=== PATIENT | female | born 1980 | race Caucasian/White ===

== ENCOUNTER 2024-04-29 10:06 | Emergency (ER) | payer OTHER, SELFPAY ==
[2024-04-29 10:16] VITALS: BP 150/95
[2024-04-29 10:24] VITALS: BP 135/90
[2024-04-29 10:27] VITALS: BMI 21.5
--- NOTE | 2024-04-29 10:41 | ED.GENMED ---
History of Present Illness
General
Chief Complaint: Dizziness
Time Seen by Provider: 04/29/24 10:30
History of Present Illness
History of Present Illness:
43 yo female w/ no past medical history presents to the Emergency Department for evaluation of dizziness and palpitations beginning this AM. Pt notes she awoke yesterday w/ blurry vision, that resolved after 30 mins or so, had occasional L arm
tingling yesterday. No fevers, chills or sweats. Currently palpitations and CP has resolved. No hx of similar symptoms. Denies new medications, OTC supplements or illicit substance use. LMP ended earlier this week, notes that it was 'longer' than
normal. No recent illnesses.
Past History
Past History
ED Past Medical History: None
ED Past Surgical History: Gynecological (D&E) and Orthopedic (Right ACL)
Social History
Tobacco: Non-smoker
Personal:
Living: with family
Employment: Employed
Review of Systems
Review of Systems
Allergies reviewed?: Yes
All Other Systems: ROS reviewed and negative except as documented in HPI and ROS
Phy Exam
Physical Exam
Physical Exam:
GEN: Well appearing, NAD, WDWN
Eyes: PERRLA, EOMs intact, no scleral icterus
HENT: NCAT, oral mucosa moist
Lungs: CTAB, no wheezes, rales, rhonchi, normal chest wall excursion
Cardiac: RRR, no M/R/G, no peripheral edema. Radial pulses 2+ bilat
Abdomen: S, NT, ND, NABS, no masses or hepatosplenomegaly
Neuro: AO x 3, no focal deficits to BUE/BLE, normal sensation throughout. CN II - XII grossly intact. No visual field deficits
MSK: No gross deformity or ecchymosis. No edema. No digital clubbing
Skin: No rashes, petechiae. Normal color, no pallor or jaundice.
Psych: Calm, cooperative, proper hygiene
Course
Orders/Labs/Results
Orders:
Orders
04/29/24 10:08
Electrocardiogram (*1) Urgent
Reason for Study: Palpitations
EKG- Treatment ONCE
04/29/24 10:26
Complete Blood Count/With Diff Urgent
Comprehensive Metabolic Panel Urgent
TSH Urgent
Comment: ADD ON
Troponin I Urgent
04/29/24 10:35
Add On- LAB Urgent
Tests Added?: TSH
CT Head W/o Iv Contrast Urgent
Comment:
Reason For Exam: dizziness/L arm numbness
04/29/24 11:38
Electrocardiogram (*1) Urgent
Reason for Study: Palpitations
EKG- Treatment ONCE
Abnormal Lab Results
04/29/24
10:26
WBC 3.4 L 10^3/uL
(4.8-10.8)
MCH 31.7 H pg
(27.0-31.0)
MPV 10.5 H fL
(7.4-10.4)
Absolute Neuts (auto) 1.2 L 10^3/uL
(1.4-6.5)
Neutrophils % 34.2 L %
(42.2-75.2)
Lymphocytes % 52.8 H %
(20.5-51.1)
Monocytes % 9.7 H %
(1.7-9.3)
Carbon Dioxide 19 L mmol/L
(22-30)
Glucose 151 H mg/dl
(70-99)
04/29/24 10:26
04/29/24 10:26
Vital Signs
Initial and Last Documented VS:
Initial Vital Signs
Temp Pulse Resp BP Pulse Ox
98.4 F 112 18 150/95 100
04/29/24 10:16 04/29/24 10:16 04/29/24 10:16 04/29/24 10:16 04/29/24 10:16
Last Documented Vital Signs
Temp Pulse Resp BP Pulse Ox
98.5 F 86 15 115/75 99
04/29/24 12:00 04/29/24 12:00 04/29/24 12:00 04/29/24 12:00 04/29/24 12:00
MDM/Problems Addressed
MDM/Problems Addressed:
Patient's workup is grossly unremarkable, initial EKG did suggest some degree of ST depressions however on repeat EKG these were resolved, likely rate dependent ischemia. Her symptoms resolved in the emergency department. Unclear etiology given
reassuring labs
Comment
Comment:
EKG independently interpreted by me shows a sinus tachycardia at a rate of 109, motion artifact limits interpretation in lateral and inferior hills however there is apparent diffuse ST/T wave depression
*Critical Care Note
Total Time (30-74mins, 75-104mins- exclusive of procedures): Not Applicable
ED Attending Note
-
Portions of this chart may have been created with voice recognition software.� Occasional wrong word or��sound alike� substitutions may have occurred due to the inherent limitations of voice recognition software.
Discharge Plan
Departure
Patient Disposition: Home (Routine Discharge)
Date of Disposition: 04/29/24
Time of Disposition: 12:04
Patient with high blood pressure during this ER visit?: No
Discharge Problem:
Heart palpitations, Dizziness
Instructions: Dizziness, Nonvertigo, (DC)
Prescriptions:
No Action
ondansetron HCl 4 MG tablet
4 mg PO Q8HPRN PRN (Reason: for vomiting) Qty: 14 0RF
nystatin 1 APPLIC ointment
1 applic topical BID Qty: 1 0RF
miconazole nitrate [Monistat 1 Combo Pack] 1 EACH kit
1 ea VG ONCE Qty: 1 0RF
Referrals:
JuanM anuel Pastrana MD [Family Provider] -
Activity Restrictions/Additional Instructions:
The cause of your symptoms is not clear at this time. Your lab work, EKG, and CT scan of the head were all very reassuring. Please follow-up with your primary care physician if symptoms seem to recur
Interventions
Interventions:
*Risk Screen - Suicide Last Done: 04/29/24 10:16
*General Assessment Last Done: 04/29/24 10:16
*Neglect/Abuse Screening Last Done: 04/29/24 10:16
ED- Fall Risk Assessment Last Done: 04/29/24 10:27
*ED COVID-19 Vaccine History Last Done: 04/29/24 10:27
*Nursing Disposition Last Done: 04/29/24 12:24
ED- Neurological Assessment Last Done: 04/29/24 10:27
ED-EENT Assessment Last Done: 04/29/24 10:27
ED- Cardiac Assessment Last Done: 04/29/24 10:27
ED Swallowing Screen Last Done: 04/29/24 10:27
Discharge Date and Time
Discharge Date/Time: 04/29/24 12:25
Print Language: SUDANESE
[2024-04-29 10:53] LABS: ALT (SGPT) 17 U/L (0-35); AST (SGOT) 25 U/L (14-36); Albumin 4.9 g/dl (3.5-5.0); Alkaline Phosphatase 63 U/L (38-126); Blood Urea Nitrogen 12 mg/dl (7-17); Calcium 10.1 mg/dl (8.4-10.2); Carbon Dioxide 19 mmol/L (22-30); Chloride 104 mmol/L (98-107); Estimated Creatinine Clearance 102 ml/min; Glucose 151 mg/dl (70-99); Potassium 3.6 mmol/L (3.5-5.1); Sodium 138 mmol/L (135-145); Total Bilirubin 0.7 mg/dl (0.2-1.3); Total Protein 7.6 g/dl (6.3-8.2); eGFR > 60.00
[2024-04-29 10:57] VITALS: BP 126/90
[2024-04-29 11:00] VITALS: BP 119/79
[2024-04-29 11:06] LABS: Troponin I < 0.012 ng/ml
[2024-04-29 11:15] LABS: Hematocrit 38.8 % (37.0-47.0); Hemoglobin 13.8 g/dL (12.0-16.0); Mean Corp Hgb Conc. 35.6 g/dL (33.0-37.0); Mean Corpuscular Hgb 31.7 pg (27.0-31.0); Mean Corpuscular Volume 89.2 fL (81.0-99.0); Mean Platelet Volume 10.5 fL (7.4-10.4); Platelet Count 271 10^3/uL (130-400); Red Blood Cell Count 4.35 10^6/uL (4.20-5.40); Red Cell Dist. Width 11.6 % (11.5-14.5); White Blood Cell Count 3.4 10^3/uL (4.8-10.8)
[2024-04-29 12:00] VITALS: BP 115/75
[2024-04-29 12:02] LABS: % Basophils 0.9 % (0-2); % Eosinophils 2.1 % (0-6); % Immature Granulocytes 0.3 % (0-0.5); % Lymphocytes 52.8 % (20.5-51.1); % Monocytes 9.7 % (1.7-9.3); % Neutrophils 34.2 % (42.2-75.2); Absolute Eosinophils 0.1 10^3/uL (0-0.7); Absolute Lymphocytes 1.8 10^3/uL (1.2-3.4); Absolute Monocytes 0.3 10^3/uL (0.1-0.6); Absolute Neutrophils 1.2 10^3/uL (1.4-6.5); Nucleated Red Blood Cells % 0 %
[2024-04-29 12:45] LABS: TSH 1.12 uIU/ml (0.47-4.68)
== END 2024-04-29 12:25 | disposition home or self-care (01) ==
LOC: EMR 10:06
PROVIDERS: EMERGENCY PHYSICIAN Emergency Medicine; FAMILY PHYSICIAN Internal Medicine
DX: R42 Dizziness and giddiness (principal); R00.2 Palpitations; R20.0 Anesthesia of skin
CPT/HCPCS: 99285; 70450; 80053; 84443; 84484; 85025; 93005

== ENCOUNTER → 2024-07-22 17:31 | Outpatient (REF) | payer OTHER, SELFPAY | LOC: WDC 17:31 | PROVIDERS: ATTENDING PHYSICIAN Internal Medicine | DX: Z12.31 Encounter for screening mammogram for malignant neoplasm of breast (principal) | CPT/HCPCS: 77063; 77067 ==

== ENCOUNTER → 2025-07-26 17:30 | Outpatient (REF) | payer OTHER, SELFPAY | LOC: WDC 17:30 | PROVIDERS: ATTENDING PHYSICIAN Internal Medicine | DX: Z12.31 Encounter for screening mammogram for malignant neoplasm of breast (principal) | CPT/HCPCS: 77063; 77067 ==